=== PATIENT | female | born 1935 | race Two or more races ===

== ENCOUNTER 2018-02-25 14:07 | Outpatient (CLI) | payer MEDICARE, MEDICAID ==
[2018-02-25 14:00] VITALS: BP 126/47
[~2018-02-25 14:07] MED LIST: ACTOS45 MG ORAL; ARICEPT5 MG ORAL; ATARAX25 MG ORAL; BIOTIN5 MG PO; CELEBREX200 MG ORAL; IRON SUPPLEMEN325 M1 PO; MECLIZINE HCL25 MG ORAL; NASONEX17 GM NASAL; OSCAL D500 MG ORAL; PAXIL20 MG ORAL; PRAVASTATIN SOD20 M1 ORAL; RAMIPRIL5 MG ORAL; SYNTHROID125 MCG ORAL; VITAMIN B12-FO1 EAC1 PO
--- NOTE | 2018-02-25 15:21 | GI Progress Note ---
Assessment/Plan Problems: (1) Abdominal pain ICD Codes: R10.9 - Unspecified abdominal pain SNOMED: 23692604 (2) DM (diabetes mellitus) ICD Codes: E11.9 - DM (diabetes mellitus) SNOMED: 41266688 (3) Hypothyroid ICD Codes: E03.9 - Hypothyroid SNOMED: 62923581 (4) HTN (hypertension) ICD Codes: I10 - HTN (hypertension) SNOMED: 11684699 (5) Colon cancer ICD Codes: C18.9 - Colon cancer SNOMED: 699943146 (6) S/P partial colectomy ICD Codes: Z98.89 - S/P partial colectomy SNOMED: 324670469 Status: stable Status Narrative Seen with Dr. Morrow. Assessment/Plan Hx of Colon CA in 2012 s/p partial colectomy 2016 Colonoscopy No alarming s/sx at this time has mild abdominal pain at the surgical site Recommend repeat colonoscopy, but will wait per patient request. RTC prn The patient was seen and examined at bedside and all new and available data was reviewed in the patients chart. I agree with the above findings, impression and plan. (Patient seen earlier today. Signature stamp does not reflect patient encounter time.). - Cory Morrow MD Subjective Subjective Abdominal pain history of colonoscopy in 2016 Objective T 97.7 Bp 126/47 62 HR 97 RA General Appearance: WD/WN, no apparent distress, alert, thin Cardiovascular: normal rate Respiratory/Chest: normal breath sounds, no respiratory distress Abdominal Exam: normal bowel sounds, non tender, soft Extremities: normal range of motion, non-tender Karla VelásquezhEmelyn SUB MASTER Feb 25, 2018 15:21
== END 2018-02-25 14:37 | disposition home or self-care (01) ==
LOC: PAN 14:07
DX: R10.9 Unspecified abdominal pain (principal); Z90.49 Acquired absence of other specified parts of digestive tract; Z85.038 Personal history of other malignant neoplasm of large intestine; E11.9 Type 2 diabetes mellitus without complications; E03.9 Hypothyroidism, unspecified; I10 Essential (primary) hypertension
CPT/HCPCS: 99212

== ENCOUNTER 2018-05-26 08:47 | Day surgery (SDC) | payer MEDICARE, MEDICAID ==
[2018-05-26] VITALS (8 sets, daily range): BP systolic 116–129; BP diastolic 43–57
[~2018-05-26] VITALS: Ht 157.5 cm; Wt 53.5 kg
--- NOTE | 2018-05-26 08:58 | Pre-Procedure Note/Attestation ---
Pre-Procedure Note/Attestation Complete Prior to Procedure Planned Procedure: not applicable Procedure Narrative: esophagogastroduodenoscopy and colonoscopy Indications for Procedure Pre-Operative Diagnosis: colon polyps, wt loss Attestation I attest that I discussed the nature of the procedure; its benefits; risks and complications; and alternatives (and the risks and benefits of such alternatives ), prior to the procedure, with the patient (or the patient's legal telephone sales representative). I attest that, if there was a reasonable possibility of needing a blood transfusion, the patient (or the patient's legal telephone sales representative) was given the [facility] standardized written summary, pursuant to the [place] Blood Safety Act ([place] Health and Safety Code # 1645, as amended). I attest that I re-evaluated the patient just prior to the surgery and that there has been no change in the patient's H&P, except as documented below: Cory Morrow MD May 26, 2018 08:58
--- NOTE | 2018-05-26 08:59 | Short Stay Surgery H&P ---
History of Present Illness History of Present Illness Chief Complaint see recent office note HPI Jeffery Beach is a 83 year old female who was admitted on for Colon Cancer Patient History Allergies: Coded Allergies: CODEINE (Verified Allergy, Mild, 12/06/08) Medication History Scheduled Biotin (Biotin), 5 MG PO DAILY, (Reported) Calcium Carbonate (Oyster Shell Calcium-Vit D Tab), 500 MG ORAL DAILY, (Reported ) Celecoxib* (Celebrex*), 200 MG ORAL DAILY, (Reported) Cyanocobalamin/Folic Acid (Vitamin O29-Ruuec Acid Tablet), 1 EACH PO DAILY, ( Reported) Donepezil Hcl* (Aricept*), 5 MG ORAL DAILY, (Reported) Ferrous Sulfate (Iron Supplement), 325 MG PO DAILY, (Reported) Hydroxyzine HCl (Hydroxyzine HCl), 25 MG ORAL Q8HR, (Reported) Levothyroxine Sodium* (Synthroid*), 125 MCG ORAL DAILY, (Reported) Meclizine Hcl* (Meclizine*), 25 MG ORAL BID, (Reported) Mometasone Furoate (Nasonex), 2 SPRAYS NASAL DAILY, (Reported) Paroxetine Hcl* (Paxil*), 20 MG ORAL DAILY, (Reported) Pioglitazone Hcl* (Actos*), 45 MG ORAL DAILY, (Reported) Pravastatin Sod* (Pravastatin Sod*), 40 MG ORAL BEDTIME, (Reported) Ramipril* (Ramipril*), 10 MG ORAL DAILY, (Reported) Plan Attestation Are the patient's medical conditions optimized for surgery? Cory Morrow MD May 26, 2018 08:59
[2018-05-26] MEDS ORDERED: IRON 100-VITAM1 EACH PO (09:47)
[2018-05-26] MEDS ORDERED: LYRICA75 M1 ORAL (09:47)
[2018-05-26] MEDS ORDERED: CREON DR 36,001 EACH PO (09:47)
[2018-05-26] MEDS ORDERED: MOVE FREE JOIN1 EACH PO (09:47)
[2018-05-26] MEDS ORDERED: CITRACAL + D M1 EACH PO (09:47)
[2018-05-26] MEDS ORDERED: TRINTELLIX (09:47)
[2018-05-26] MEDS ORDERED: DICLOFENAC SODI75 MG ORAL (09:47)
[2018-05-26] MEDS ORDERED: JANUMET 50-1,01 EACH ORAL (09:47)
[2018-05-26] MEDS ORDERED: DEXILANT60 MG ORAL (09:47)
--- NOTE | 2018-05-26 09:59 | Pre-Procedure Note/Attestation ---
Pre-Procedure Note/Attestation Complete Prior to Procedure Planned Procedure: not applicable Procedure Narrative: colonoscopy Indications for Procedure Pre-Operative Diagnosis: colon polyps, wt loss Attestation I attest that I discussed the nature of the procedure; its benefits; risks and complications; and alternatives (and the risks and benefits of such alternatives ), prior to the procedure, with the patient (or the patient's legal entry level account representative). I attest that, if there was a reasonable possibility of needing a blood transfusion, the patient (or the patient's legal entry level account representative) was given the [facility] standardized written summary, pursuant to the [place] Blood Safety Act ([place] Health and Safety Code # 1645, as amended). I attest that I re-evaluated the patient just prior to the surgery and that there has been no change in the patient's H&P, except as documented below: Cory Morrow MD May 26, 2018 09:58
[2018-05-26] MEDS ORDERED: Midazolam 2mg/2ml Inj ONE (10:00)
[2018-05-26] MEDS ORDERED: Propofol 200mg/20ml IV ONE (10:00)
--- NOTE | 2018-05-26 10:35 | Anethesia Preoperative Eval ---
Anesthesia Pre-op PMH/ROS General Date of Evaluation: May 26, 2018 Time of Evaluation: 10:12 Anesthesiologist: Nell ASA Score: ASA 3 Mallampati Score Class I : Soft palate, uvula, fauces, pillars visible Class II: Soft palate, uvula, fauces visible Class III: Soft palate, base of uvula visible Class IV: Only hard plate visible Mallampati Classification: Class II Surgeon: Odalys Diagnosis: colon CA Surgical Procedure: colonoscopy Anesthesia History: none Family History: no anesthesia problems Allergies: Coded Allergies: CODEINE (Verified Allergy, Severe, 05/26/18) diziness, vomiting Medications: see eMAR Patient NPO?: Yes NPO Date: May 25, 2018 NPO Time: 21:00 Past Medical History Cardiovascular: Reports: HTN, CAD, other - CHF, hyperlipids Pulmonary: Denies: asthma, COPD, EVELYN, other Gastrointestinal/Genitourinary: Reports: GERD Neurologic/Psychiatric: Reports: depression/anxiety Endocrine: Reports: DM, hypothyroidism HEENT: Reports: cataract (L), cataract (R), S[place] (L), [place] (R) Hematology/Immune: Reports: anemia Musculoskeletal/Integumentary: Reports: OA, DJD Anesthesia Pre-op Phys. Exam Physician Exam Last Vital Signs Date Time Temp Pulse Resp B/P (MAP) Pulse Ox O2 Delivery O2 Flow Rate FiO2 05/26/18 09:38 97.7 62 17 129/50 98 Room Air Constitutional: NAD Neurologic: CN 2-12 intact Cardiovascular: RRR Respiratory: CTA Gastrointestinal: S/NT/ND Airway Exam Mallampati Score: Class II MO: full ROM: full Teeth: missing Dentures: upper, lower Anesthesia Pre-op A/P Labs chart reviewed Studies Pre-op Studies: EKG - NSR 60 BPM Risk Assessment & Plan Assessment: A&Ox3, daughter at bedside to answer questions Status Change Before Surgery: No Pre-Antibiotics Given Within 1 Hr of Incision: Rosita Coburn CRNA May 26, 2018 10:35
--- NOTE | 2018-05-26 10:36 | Immediate Post-Op Evaluation ---
Immediate Post-Op Evalulation Immediate Post-Op Evalulation Procedure: colonoscopy Date of Evaluation: May 26, 2018 Time of Evaluation: 10:50 IV Fluids: NSS 200 ml Blood Products: 0 Estimated Blood Loss: 0 Urinary Output: 0 Blood Pressure Systolic: 118 Blood Pressure Diastolic: 48 Pulse Rate: 58 Respiratory Rate: 20 O2 Sat by Pulse Oximetry: 100 Temperature (Fahrenheit): 97.4 Pain Score (1-10): 0 Nausea: No Vomiting: No Complications none noted Patient Status: awake, reacts, patent Given Within 1 Hr of Incision: Rosita Coburn CRNA May 26, 2018 10:36
--- NOTE | 2018-05-26 10:39 | Endoscopy Procedure Note ---
Endoscopy Procedure Note General Indication for Procedure: h/o colon cancer Procedures Performed: colonoscopy Operative Findings/Diagnosis: one polyp Specimen: yes Pt Tolerated Procedure Well: Yes Estimated Blood Loss: none Anesthesia Anesthesiologist: jonathon Anesthesia: MAC Inserted Devices Implant(s) used?: No Quality Quality of Bowel Preparation: Good Did scope reach the cecum?: Yes Was there any complications?: No GI Core Measures 50 yrs or older w/o bx or poly: Yes 10yrs. F/U not recommended: Yes If not recommended, why?: Above average risk 10 yrs. F/U needed: Yes 18 years or older w/prev. colo: Yes <3yrs. since last colonoscopy: No Cory Morrow MD May 26, 2018 10:39
--- NOTE | 2018-05-26 11:35 | 48 Hour Post Anesthesia Eval ---
Post Anesthesia Evaluation Procedure: colonoscopy Date of Evaluation: May 26, 2018 Time of Evaluation: 11:32 Blood Pressure Systolic: 129 0: 43 Pulse Rate: 56 Respiratory Rate: 20 Temperature (Fahrenheit): 97.4 O2 Sat by Pulse Oximetry: 100 Airway: patent Nausea: No Vomiting: No Pain Intensity: 0 Hydration Status: adequate Cardiopulmonary Status: WNL Mental Status/LOC: patient returned to baseline Follow-up care needed: patient intructions given Rosita Camejo CRNA May 26, 2018 11:35
--- NOTE | 2018-05-26 22:15 | Procedure Note ---
DATE OF PROCEDURE: 05/26/2018 SURGEON: Cory Morrow M.D. PROCEDURE: Colonoscopy with snare polypectomy. ANESTHESIA: By S[employer]IOR LITIGATION [employer] . INSTRUMENT: Olympus adult flexible colonoscope. INDICATION: History of colon cancer and followup colonoscopy. REASON FOR PROCEDURE: The procedure, risks, benefits, and possible consequences, including hemorrhage, aspiration, perforation and infection, and alternative treatments, were explained to the patient/legal guardian by Dr. Cory Morrow and the patient/legal guardian understood and accepted these risks. PROCEDURE IN DETAIL: After informed consent was obtained and the patient was adequately sedated, first rectal exam was performed, which was positive for internal hemorrhoids. Then, the scope was advanced from the rectum into the anastomosis. The patient has a history of right hemicolectomy. The patient had one polyp in the rectum measured roughly about 5 mm, removed with the cold snare polypectomy technique. The rest of the examination was grossly within normal limits. Retroflexion of rectum showed evidence of medium-sized internal hemorrhoids. SUMMARY OF FINDINGS: 1. One colonic polyp removed, see above for details. 2. Internal hemorrhoids. RECOMMENDATIONS: 1. Follow up pathology. 2. We will recommend repeat colonoscopy in five years. Cory Morrow M.D. DR: ANAND JOB#: [id number] CC:
--- NOTE | 2018-05-28 16:03 | Cardiology Report ---
APPROVED REPORT EKG Measurement Heart [id number] MT [id number] Normal sinus rhythm with sinus arrhythmia Normal ECG
== END 2018-05-26 11:55 | disposition home or self-care (01) ==
LOC: GAS 08:47
DX: Z85.038 Personal history of other malignant neoplasm of large intestine (principal); D12.8 Benign neoplasm of rectum; K64.8 Other hemorrhoids; I11.0 Hypertensive heart disease with heart failure; I50.9 Heart failure, unspecified; I25.10 Atherosclerotic heart disease of native coronary artery without angina pectoris; E78.5 Hyperlipidemia, unspecified; K21.9 Gastro-esophageal reflux disease without esophagitis; F32.9 Major depressive disorder, single episode, unspecified; F41.9 Anxiety disorder, unspecified; E11.9 Type 2 diabetes mellitus without complications; E03.9 Hypothyroidism, unspecified; D64.9 Anemia, unspecified; M19.90 Unspecified osteoarthritis, unspecified site
CPT/HCPCS: 82962; 93005; 94003; 94150; J2250